=== PATIENT | male | born 1955 | race African-American/Black ===

== ENCOUNTER 2017-11-07 13:44 | Emergency (ER) | payer OTHER ==
[~2017-11-07] VITALS: Ht 157.5 cm; Wt 78.0 kg
[2017-11-07 13:48] VITALS: TEMP 36.6; Ht 157.5 cm; Wt 78.0 kg
[2017-11-07] MEDS ORDERED: CARI350T28 PO (14:13)
[2017-11-07 14:53] VITALS: BP 156/96; PULSE 58; O2SAT 96
--- NOTE | 2017-11-07 15:44 | EMERGENCY ROOM VISIT NOTE ---
History First contact with patient: 13:54 Chief Complaint: BACK PAIN Stated Complaint: BACK PAIN History of Present Illness The patient is a 62 year old -[place] male who presents to the Emergency Room with complaints of right shoulder pain and right low back pain. Patient states he was working on his car and slipped on some ice yesterday. He landed on his right side, striking his right shoulder on the ground. He has had pain since. No prior history of significant shoulder injury. He does have a history of chronic low back pain. He points to the lumbar area as the location of pain. He denies any loss of motion of his right shoulder. No numbness or tingling. He denies any snaps or cracks. He has been taking some Flexeril without improvement. His accompanies him today. Review of Systems REVIEW OF SYSTEM: HEENT: No dizziness, visual problems, hearing loss, or tinnitus. There is no difficulty swallowing and no oral lesions are present. PULMONARY: No cough, shortness of breath, sputum production or hemoptysis. CARDIOVASCULAR: No chest pain, palpitations, shortness of breath or peripheral edema. GASTROINTESTINAL: No diarrhea, constipation, nausea, vomiting, or abdominal pain. GENITOURINARY: No dysuria, frequency, urgency or nocturia. NEUROLOGIC: No weakness, muscle tenderness, epilepsy or history of neurological problems. MUSCULOSKELETAL: No history of joint tenderness/swelling. No history of arthritis or arthralgias. SKIN: No rashes or lesions. PSYCHIATRIC: No history of depression or mental illness. ENDOCRINE: No history of diabetes, thyroid disorders, or abnormal hair growth. Past Medical/Surgical History Past medical history: Significant for low back pain Previous surgeries: None Family History Significant for heart disease, hypertension, cancer, and kidney disease. Father is . Social History Smoking Status: Current Every Day Smoker Smokeless Tobacco Use: No Alcohol Use: none Drug Use: none Marital Status: Housing Status: lives with family Occupation Status: unemployed Current/Historical Medications Scheduled PRN Carisoprodol (Soma), 350 MG PO Q6H PRN for Pain Physical Exam Vital Signs Date Time Temp Pulse Resp B/P (MAP) Pulse Ox O2 Delivery O2 Flow Rate FiO2 11/07/17 14:53 58 18 156/96 96 11/07/17 13:48 36.6 66 16 176/90 92 Physical Exam General: Well-developed, well-nourished, middle-aged -[place] male, in no acute distress. Sitting on the bed. Alert and oriented. Skin: Warm and dry with good turgor. No rashes or lesions. No ecchymosis or erythema. The patient is not diaphoretic. No abrasions. Musculoskeletal: Low back evaluation reveals no obvious asymmetry or deformity. No palpable spasm. He describes discomfort with palpation over the right paraspinal musculature from L1-L5. No pain with palpation over the vertebral bodies or disc spaces. No pain with palpation over his sacrum or SI joints. Intact motor function to the lower extremities. Right shoulder evaluation reveals a slight prominence to the AC joint. It is tender to touch. No pain with palpation over the rest of the clavicle. He describes discomfort with palpation over the trapezius muscle. No trigger points. No pain with palpation over the posterior rotator cuff musculature. Intact function to the wrist and elbow. He has good motion of the shoulder though this does cause pain at his AC joint. Forward flexion of around 140, abduction of around 140. Good internal and external rotation. No pain with palpation over the deltoid or proximal biceps tendon. No Kulwinder sign or palpable defect. Good range of motion of his neck. Neurologic: Gross sensation is intact across the upper and lower extremities by soft touch. Medical Decision & Procedures ED Course Patient was educated regarding today's findings. Conservative care measures were discussed. Ice to the shoulder intermittently 3 days. Continue with pendulum exercises and gentle range of motion to prevent stiffness. He was shown how to do these. Follow-up with his PCP if symptoms persist. He will stop the Flexeril and start Soma 1 pill every 6 hours as needed for pain and spasm. Continue with his Tylenol and Motrin. Ice to the low back may also be of benefit for a few days, and then switch to moist heat. Gentle stretching was also recommended. Return to the ED for any acute worsening of symptoms. If his shoulder pain persists, he will require imaging. This was discussed. Sling was provided for comfort. Medical Decision Possibility of rotator cuff injury, biceps tendon rupture, fracture, lumbar disc injury, SI joint dysfunction, and strain were also considered. Medication Reconcilliation Current Medication List: was personally reviewed by me Blood Pressure Screening Blood pressure disposition: Elevated BP felt to be situational Impression Primary Impression: Lumbar strain Additional Impression: Separation of AC joint Departure Information Dispostion Home / Self-Care Condition FAIR Prescriptions Carisoprodol (Soma) 350 Mg Tab 350 MG PO Q6H Y for Pain, #16 TAB Prov: Benjie Hoang,P.A. 11/07/17 Forms HOME CARE DOCUMENTATION FORM, MOTRIN USE, TYLENOL USE, IMPORTANT VISIT INFORMATION Patient Instructions [facility] [employer] Additional Instructions Use the sling as needed for comfort Gentle arm and back motion daily Tylenol and Motrin every 6 hours as needed for discomfort Soma 1 tablet every 6 hours as needed for pain/spasm-no driving Follow up with your PCP as needed Return to the ED for any acute worsening of symptoms Problem Qualifiers Primary Impression: Lumbar strain Encounter type: initial encounter Qualified Codes: S39.012A - Strain of muscle, fascia and tendon of lower back, initial encounter Additional Impression: Separation of AC joint Encounter type: initial encounter Laterality: right Qualified Codes: S43.101A - Unspecified dislocation of right acromioclavicular joint, initial encounter
== END 2017-11-07 14:45 | disposition home or self-care (01) ==
LOC: C.EDB 13:45 → C.EDD 14:45
DX: S39.012A Strain of muscle, fascia and tendon of lower back, initial encounter (principal); S43.101A Unspecified dislocation of right acromioclavicular joint, initial encounter; Z82.49 Family history of ischemic heart disease and other diseases of the circulatory system; Z83.3 Family history of diabetes mellitus; Z84.1 Family history of disorders of kidney and ureter; W00.0XXA Fall on same level due to ice and snow, initial encounter; F17.200 Nicotine dependence, unspecified, uncomplicated

== ENCOUNTER 2017-11-24 10:33 | Emergency (ER) | payer OTHER ==
[~2017-11-24 10:33] MED LIST: CARI350T28 PO
[2017-11-24 10:49] VITALS: TEMP 36.7; Ht 157.5 cm
--- NOTE | 2017-11-24 12:29 | DIAGNOSTIC IMAGING REPORT ---
THORACIC SPINE 3 VIEWS ROUTINE CLINICAL HISTORY: 62 years-old Male presenting with Persistent back pain x 2.5 wks after fall. TECHNIQUE: 3 views of the thoracic spine were obtained. COMPARISON: None. FINDINGS: Minimal dextrocurvature of the thoracic spine suggested. Normal thoracic kyphosis. Vertebral bodies maintain normal height and alignment. Visualized portion of the cervical spine within normal limits. Intervertebral disc heights preserved. Anterior osteophytosis with disc osteophyte complexes noted in the lower thoracic spine. Hyperdensity within one of the upper lumbar vertebra may represent a bone island (marked on the image). No compression deformity. IMPRESSION: 1. No radiographic evidence of acute osseous injury. 2. Multilevel degenerative changes. 3. Possible bone island in an upper lumbar vertebra. Electronically signed by: Martin Caruso M.D. 11/24/2017 12:27 PM Dictated Date/Time: 11/24/2017 12:25 PM
--- NOTE | 2017-11-24 12:30 | DIAGNOSTIC IMAGING REPORT ---
L-SPINE MIN 4 VIEWS ROUTINE CLINICAL HISTORY: 62 years-old Male presenting with Persistent back pain x 2.5 wks after fall. TECHNIQUE: Frontal, bilateral oblique, lateral, and coned in lateral views of the lumbar spine were obtained. COMPARISON: None. FINDINGS: Normal lumbar lordosis. No significant scoliosis. Vertebral bodies maintain normal height and alignment. A sclerotic lesion is noted in L2, possibly bone island. Intervertebral disc heights preserved. No radiographic evidence of a compression deformity or osseous neural foraminal narrowing. Degenerative changes noted in the lower thoracic spine. The lumbar spine is essentially free of significant osseous degenerative change. IMPRESSION: 1. No radiographic evidence of acute osseous injury. 2. No advanced degenerative changes in the lumbar spine. 3. Sclerotic lesion in L2, possibly bone island. Electronically signed by: Martin Caruso M.D. 11/24/2017 12:28 PM Dictated Date/Time: 11/24/2017 12:27 PM
[2017-11-24] MEDS ORDERED: TRAM-10 PO (12:55)
[2017-11-24 13:05] VITALS: BP 155/96; PULSE 57; O2SAT 97
--- NOTE | 2017-11-24 16:37 | EMERGENCY ROOM VISIT NOTE ---
History First contact with patient: 11:34 Chief Complaint: BACK PAIN Stated Complaint: UPPDER BACK PAIN History of Present Illness The patient is a 62 year old male who presents to the Emergency Room with complaints of persistent lower back pain radiating into the upper back. The patient reports that he was here 2 weeks ago for an injury after he slipped and fell on ice. The patient was provided a prescription for Soma, which the patient reports is not helping with his pain. He previously took Flexeril without relief. The patient reports a history of chronic back pain. The patient reports that he also his right shoulder, but reports that his shoulder pain is improving. He has been performing exercises as instructed on his last ED visit. The patient currently denies any pain radiating into the buttocks or down the legs. He denies any lower extremity weakness, bladder/ bowel incontinence or saddle anesthesias. He currently rates his discomfort an 8 out of 10. The patient reports that he called his PCPs office and was told that his PCP is out of town for the next month. They did not offer to schedule him with another provider. When he asked for a prescription for medicine, they referred him to the emergency department. Review of Systems 10 system review was performed and was negative except for pertinent positives and negatives as indicated in history of present illness Past Medical/Surgical History Medical Problems: (1) Carpal Tunnel Syndrome (2) Cervical Spondylosis (3) Chronic low back pain (4) Tobacco Use Disorder Family History Unremarkable Social History Smoking Status: Former Smoker Alcohol Use: none Drug Use: none Marital Status: Housing Status: lives with family Occupation Status: unemployed Current/Historical Medications Scheduled PRN Tramadol (Ultram), 1-2 TAB PO Q4H PRN for Pain Physical Exam Vital Signs Date Time Temp Pulse Resp B/P (MAP) Pulse Ox O2 Delivery O2 Flow Rate FiO2 11/24/17 13:05 57 16 155/96 97 11/24/17 10:49 36.7 56 20 177/78 95 Room Air Physical Exam CONSTITUTIONAL: Healthy and well nourished. Alert and oriented X 3 with positive affect. Patient is currently resting on his back in no obvious distress. HEENT: Normocephalic, atraumatic. Pupils equal, round and reactive. Ears and nares are clear. NECK: Full active range of motion without discomfort. RESPIRATORY: Clear to auscultation bilaterally with no wheezing, crackles, rhonchi or stridor. CARDIOVASCULAR: Regular rate and rhythm with no murmurs, rubs or gallops. GASTROINTESTINAL: Bowel sounds present in all quadrants. Soft and nontender to palpation. MUSCULOSKELETAL: Examination shows generalized tenderness to palpation throughout the entire thoracolumbar spine. The patient has no obvious step- offs or paraspinous spasms. Patient is able to lateral bending, forward flex, extend and rotate the back with only mild discomfort. Equal handgrip bilaterally. Ankle plantar/dorsiflexion strength is 5 out of 5 and symmetric bilaterally. Distal pulses are intact. INTEGUMENTARY: No rash or other significant dermatologic conditions noted. NEUROLOGIC: Cranial nerves II-XII grossly intact. No focal neurologic deficits noted. Upper and lower extremities are sensory intact with deep tendon reflexes 2+ and symmetric bilaterally. Medical Decision & Procedures ER Provider Diagnostic Interpretation: My interpretation of lumbar spine x-rays does not show any obvious fractures or lordotic reversal. Radiologist report is as follows: L-SPINE MIN 4 VIEWS ROUTINE CLINICAL HISTORY: 62 years-old Male presenting with Persistent back pain x 2.5 wks after fall. TECHNIQUE: Frontal, bilateral oblique, lateral, and coned in lateral views of the lumbar spine were obtained. COMPARISON: None. FINDINGS: Normal lumbar lordosis. No significant scoliosis. Vertebral bodies maintain normal height and alignment. A sclerotic lesion is noted in L2, possibly bone island. Intervertebral disc heights preserved. No radiographic evidence of a compression deformity or osseous neural foraminal narrowing. Degenerative changes noted in the lower thoracic spine. The lumbar spine is essentially free of significant osseous degenerative change. IMPRESSION: 1. No radiographic evidence of acute osseous injury. 2. No advanced degenerative changes in the lumbar spine. 3. Sclerotic lesion in L2, possibly bone island. My interpretation of thoracic spine x-rays show significant degenerative changes in the lower thoracic spine, otherwise no other acute fractures noted. Radiologist report is as follows: THORACIC SPINE 3 VIEWS ROUTINE CLINICAL HISTORY: 62 years-old Male presenting with Persistent back pain x 2.5 wks after fall. TECHNIQUE: 3 views of the thoracic spine were obtained. COMPARISON: None. FINDINGS: Minimal dextrocurvature of the thoracic spine suggested. Normal thoracic kyphosis. Vertebral bodies maintain normal height and alignment. Visualized portion of the cervical spine within normal limits. Intervertebral disc heights preserved. Anterior osteophytosis with disc osteophyte complexes noted in the lower thoracic spine. Hyperdensity within one of the upper lumbar vertebra may represent a bone island (marked on the image). No compression deformity. IMPRESSION: 1. No radiographic evidence of acute osseous injury. 2. Multilevel degenerative changes. 3. Possible bone island in an upper lumbar vertebra. ED Course Patient history and physical exam were performed. Nurse's notes were reviewed. Vital signs were reviewed, showing a blood pressure 177/78. X-rays of the thoracolumbar spine were normal, showing no evidence for acute fracture. The patient does have degenerative changes in the lower thoracic spine. The patient was advised of his x-ray findings. Because muscle relaxers are not helping, I recommended no further prescriptions for these agents. The patient was requesting Ultram which has helped in the past with his pain. Review of the [place] Prescription Drug Monitoring Program does not show any red flags. The patient was encouraged to intermittently apply heat to the back. Tylenol for baseline pain relief. The patient was provided a prescription for Ultram 50 mg, dispense #15 with no refills. The patient was instructed to follow-up with his family doctor for further management. The patient was happy with plan of care, voiced understanding of all discharge instructions, and rated his discomfort a 5 out of 10 at the conclusion of my exam. Medical Decision [place] Drug Monitoring Program Search Results: patient reviewed within database, no issues identified Medication Reconcilliation Current Medication List: was personally reviewed by me Blood Pressure Screening Patient's blood pressure: Normal blood pressure Impression Primary Impression: Back strain Additional Impression: History of fall Departure Information Prescriptions Tramadol (Ultram) 50 Mg Tab 1-2 TAB PO Q4H Y for Pain, #20 TAB For Initial Treatment Prov: Christiano Flores PA 11/24/17 Referrals No Doctor, Assigned (PCP) Patient Instructions [facility] Problem Qualifiers Primary Impression: Back strain Encounter type: initial encounter Qualified Codes: S39.012A - Strain of muscle, fascia and tendon of lower back, initial encounter
== END 2017-11-24 13:15 | disposition home or self-care (01) ==
LOC: C.EDB 10:34 → C.EDC 13:15
DX: S39.012A Strain of muscle, fascia and tendon of lower back, initial encounter (principal); W00.0XXA Fall on same level due to ice and snow, initial encounter; G89.29 Other chronic pain; Z87.891 Personal history of nicotine dependence

== ENCOUNTER 2018-01-06 13:10 | Emergency (ER) | payer OTHER ==
[~2018-01-06] VITALS: Ht 157.5 cm; Wt 77.7 kg
[~2018-01-06 13:10] MED LIST changes: -CARI350T28 PO; +TRAM-10 PO
[2018-01-06 13:15] VITALS: TEMP 37; Ht 157.5 cm; Wt 77.7 kg
--- NOTE | 2018-01-06 13:38 | EMERGENCY ROOM VISIT NOTE ---
History Report prepared by Hilda: Kodi Boo Under the Supervision of: Dr. Timmy Brady M.D. First contact with patient: 13:19 Chief Complaint: NEURO SYMPTOMS Stated Complaint: FACIAL NUMBNESS LT SIDE History of Present Illness The patient is a 62 year old white male with a past medical history of chronic low back pain, Cervical Spondylosis, and carpal tunnel syndrome who presents to the ED with a cc of constant left sided facial droop beginning two day ago. Pt woke up two days ago with left sided facial droop. He notes he has been drooling out of the left side of his mouth. Positive numbness and tingling to the left side of the face, left eye is tearful. Negative being evaluated by doctor, alcohol use, drug use, recent tick bites, cough, vision changes, congestion, chills, fevers. Pt notes he smokes 7 packs of cigarettes a year. Source of History: patient Onset: two days ago Position: other (left face) Quality: other (droop) Timing: constant Associated Symptoms: + numbness (to the left side of face), No fevers, No chills, No cough Note: Associated symptoms: drooling out of left side of mouth, tingling to the left side of mouth, left eye is tearful Denies: congestion, vision changes, tick bites Review of Systems See HPI for pertinent positives and negatives. A total of ten systems were reviewed and were otherwise negative. Past Medical & Surgical Medical Problems: (1) Carpal Tunnel Syndrome (2) Cervical Spondylosis (3) Chronic low back pain (4) Tobacco Use Disorder Family History Cancer Social History Smoking Status: Current Every Day Smoker Alcohol Use: none Drug Use: none Marital Status: Housing Status: lives with family Occupation Status: unemployed Current/Historical Medications Scheduled Artificial Tears Oph Oint (Lacri-Lube Sop Oph Oint), 1 DROP OPL HS Polyvinyl Alcohol-Povidone (Op (Freshkote), 1 DROPS OP QID Prednisone (Prednisone), 1 TAB PO DIRECTED Allergies Coded Allergies: Ibuprofen (Verified Allergy, Unknown, gi symptoms, 11/24/17) Physical Exam Vital Signs Date Time Temp Pulse Resp B/P (MAP) Pulse Ox O2 Delivery O2 Flow Rate FiO2 01/06/18 16:00 66 18 191/91 97 01/06/18 14:56 53 17 175/84 97 Room Air 01/06/18 14:13 52 01/06/18 13:15 37.0 62 20 161/103 97 Room Air Physical Exam GENERAL: Awake, alert, well-appearing, NAD HENT: Normocephalic, atraumatic. EYES: Normal conjunctiva. Sclera non-icteric. PERRL. No anisocoria. Arcus senilis. NECK: Supple. No nuchal rigidity. FROM. RESPIRATORY: CTAB, no rhonchi, wheezing, crackles CARDIAC: RRR, no MRG ABDOMEN: Soft, NTND, BS+ MSK: No chest wall TTP, no LE edema NEURO: CN 2-12 intact with exception to decreased sensation over the left side of face and left facial droop with the inability to raise the left eyebrow, 5/5 upper and lower extremity strength, no dysmetria, no drift, good finger to nose , no sensory deficits. Finger count grossly normal. SKIN: No rash or jaundice noted. Medical Decision & Procedures ER Provider Diagnostic Interpretation: Radiology results as stated below per my review and radiologist interpretation HEAD WITHOUT CONTRAST (CT) CLINICAL HISTORY: 62 years-old Male presenting with Facial droop. TECHNIQUE: Multidetector CT imaging of the head was performed without the use of intravenous contrast. IV contrast: None. A dose lowering technique was used consistent with the principles of ALARA (as low as reasonably achievable). COMPARISON: None. CT DOSE (mGy.cm): The estimated cumulative dose is 638.56 mGycm. 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 Ventricles and sulci normal in size. Brain parenchyma normal in appearance with preserved young-white differentiation. No mass effect or midline shift. No hemorrhage or acute territorial infarct. No extra-axial fluid collection. Paranasal sinuses and mastoid air cells clear. Calvarium intact. IMPRESSION: 1. No acute intracranial abnormality. Electronically signed by: Martin Caruso M.D. 01/06/2018 2:37 PM Dictated Date/Time: 01/06/2018 2:34 PM Laboratory Results 01/06/18 14:00 01/06/18 14:00 Test 01/06/18 14:00 Red Blood Count 5.81 M/uL (4.7-6.1) Mean Corpuscular Volume 88.6 fL (80-100) Mean Corpuscular Hemoglobin 31.8 pg (25-34) Mean Corpuscular Hemoglobin Concent 35.9 g/dl (32-36) RDW Standard Deviation 44.9 fL (36.4-46.3) RDW Coefficient of Variation 13.8 % (11.5-14.5) Mean Platelet Volume 10.9 fL (7.4-10.4) Erythrocyte Sedimentation Rate 9 mm/hr (0-14) Anion Gap 4.0 mmol/L (3-11) Est Creatinine Clear Calc Drug Dose 66.7 ml/min Estimated GFR () 88.4 Estimated GFR (Non- 76.2 BUN/Creatinine Ratio 8.9 (10-20) Calcium Level 9.3 mg/dl (8.5-10.1) Phosphorus Level 2.3 mg/dl (2.5-4.9) Magnesium Level 1.9 mg/dl (1.8-2.4) Lyme Disease IgG Antibody NEG (NEG) Lyme Disease IgM Antibody NEG (NEG) Laboratory results reviewed by me ECG Per My Interpretation Indication: other (neurological symptoms) Rate (beats per minute): 57 Rhythm: sinus bradycardia Findings: T-wave inversion (Lateral and inferior), left axis deviation, other ( normal interval) Comparison ECG Date: no prior available ED Course 1319: The patient was evaluated in room C02B by the resident under my supervision. A complete history and physical exam was performed. 1338: The patient was evaluated in room C02B by me. A complete history and physical exam was performed. Please refer to the resident's chart for disposition and reevaluations. Medical Decision Nursing notes reviewed. Ancillary studies and prior records reviewed. The patient is a 62 year old white male with a past medical history of chronic low back pain, Cervical Spondylosis, and carpal tunnel syndrome who presents to the ED with a cc of constant left sided facial droop beginning two day ago. Differential diagnosis: Etiologies such as metabolic, infection, hypo/hyperglycemia, electrolyte abnormalities, cardiac sources, intracerebral event, toxicologic, neurologic, as well as others were entertained. Patient was seen and evaluated the bedside after being seen and evaluated by the resident physician. Patient noted that he has some left-sided facial droop over the last 2-3 days. Patient denies any infectious symptoms. Patient does not take bites. Patient denies any other focal neuro deficits. Patient did complain of some mild left-sided facial numbness. On patient's exam the patient does not have any forehead sparing and does have diffuse unilateral deficits in left side of the face. 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 The patient did have blood work completed along with a CT of the brain EKG. EKG did show some T-wave inversions in the lateral and inferior leads. Patient denies any chest pain do not believe that this needs further evaluation but the patient was told to follow-up as an outpatient. Patient blood work did show an elevated H&H. Patient was told to continue hydrating well follow-up with his outpatient provider. The resident did discuss case with the on-call neurologist who did not recommend any antivirals which is prednisone. Also told to continue to use an eye covering her eye protection along with Lacri-Lube artificial tears for eye dryness. Patient was told to follow-up with his PCP. Patient was given strict follow-up, discharge, and return precautions. All questions were answered. Patient was deemed suitable for outpatient follow-up at this time. Patient agreed with the plan of care and was safely discharged home. Medication Reconcilliation Current Medication List: was personally reviewed by me Blood Pressure Screening Patient's blood pressure: Elevated blood pressure Blood pressure disposition: Referred to PCP Impression Primary Impression: Desir's palsy Scribe Attestation The scribe's documentation has been prepared under my direction and personally reviewed by me in its entirety. I confirm that the note above accurately reflects all work, treatment, procedures, and medical decision making performed by me. Departure Information Dispostion Home / Self-Care Prescriptions Artificial Tears Oph Oint (Lacri-Lube Sop Oph Oint) Oint 1 DROP OPL HS for 7 Days, #1 TUBE Prov: Wing Sanchez MD 01/06/18 Polyvinyl Alcohol-Povidone (Op (FRESHKOTE) 1 Kinsey Kinsey 1 DROPS OP QID, #15 ML 0 Refills Prov: Wing Sanchez MD 01/06/18 Prednisone (Prednisone) 20 Mg Tab 1 TAB PO DIRECTED for 6 Days, #11 TAB 3 tablets day1 2.5 tablets day2 2 tablets day3 1.5 tablets day4 1 tablet day5 0.5 tablet day6 Prov: Wing Sanchez MD 01/06/18 Referrals Yomi Roberts D.O. (PCP) Forms HOME CARE DOCUMENTATION FORM, IMPORTANT VISIT INFORMATION, WORK / SCHOOL INSTRUCTIONS Patient Instructions My [facility] Additional Instructions You have been diagnosed with something called [place] Palsy which affects the nerves of your face. The symptoms will last for 1-2 weeks. We will be sending steroids into the pharmacy which you will need to take for 6 days. Please take these as prescribed. You will need to wear an eye patch when you are outside. You can get this from the pharmacy. We will be sending eye drops to the pharmacy which you should be using until your symptoms resolve. We will also be sending an ointment called lacri-lube which you must use for your eye every night before you go to bed. Please use this until your symptoms resolve. Your red blood cells are elevated. Please drink plenty of water and repeat this blood work with your PCP in the next couple weeks. If you have any worsening eye pain, facial weakness, headache, arm/leg weakness then please come back to the emergency department
--- NOTE | 2018-01-06 14:03 | EMERGENCY ROOM VISIT NOTE ---
History First contact with patient: 13:19 (Wing Sanchez MD) First contact with patient: 13:19 (Timmy Brady M.D.) Chief Complaint: NEURO SYMPTOMS Stated Complaint: FACIAL NUMBNESS LT SIDE History of Present Illness The patient is a 62 year old male who presents to the Emergency Room with complaints of left sided facial weakness Patient woke up on Thursday with droop of the left side of his face. He has had these symptoms since Thursday and they have stayed the same. He has also had hypersensitivity on the left side of his face. His has been drooling out the left side of his mouth and his eye has been watering since Thursday. He denies any arm weakness, leg weakness, headache, palpitations, chest pain, visual changes, ear pain, difficulty hearing, difficulty swallowing, abnormal gait, dizziness, unsteadiness, no fevers, chills or rashes He does not see a doctor regularly and he has no known medical problems. He has a 7 pack year smoking history. (Wing Sanchez MD) Review of Systems CONSTITUTIONAL: No fever, chills, sweats or night sweats. No recent infections. No weight loss or weight gain. NEUROLOGIC: No headaches, dizziness or syncopal episodes. HEENT: No hearing or visual changes. No sinus or nasal issues. No mouth sores, thrush or oral lesions. CARDIOVASCULAR: No chest pain or palpitations. RESPIRATORY: No SOB, dyspnea, cough or hemoptysis. GASTROINTESTINAL: No nausea, vomiting, diarrhea, constipation, reflux, melena or hematochezia. GENITOURINARY: No dysuria, frequency, urgency, incontinence or hematuria. HEMATOLOGIC: No bleeding or abnormal bruising (Wing Sanchez MD) Past Medical/Surgical History Medical Problems: (1) Carpal Tunnel Syndrome (2) Cervical Spondylosis (3) Chronic low back pain (4) Tobacco Use Disorder (Timmy Brady M.D.) Family History Cancer (Wing Sanchez MD) Cancer (Timmy Brady M.D.) Social History Smoking Status: Current Every Day Smoker Alcohol Use: none Drug Use: none Marital Status: Housing Status: lives with family Occupation Status: unemployed (Wing Sanchez MD) Current/Historical Medications Scheduled Artificial Tears Oph Oint (Lacri-Lube Sop Oph Oint), 1 DROP OPL HS Polyvinyl Alcohol-Povidone (Op (Freshkote), 1 DROPS OP QID Prednisone (Prednisone), 1 TAB PO DIRECTED Physical Exam Vital Signs Date Time Temp Pulse Resp B/P (MAP) Pulse Ox O2 Delivery O2 Flow Rate FiO2 01/06/18 16:00 66 18 191/91 97 01/06/18 14:56 53 17 175/84 97 Room Air 01/06/18 14:13 52 01/06/18 13:15 37.0 62 20 161/103 97 Room Air (Timmy Brady M.D.) Physical Exam HEENT: Head - normocephalic and atraumatic. Corneal arcus bilaterally. Pupils are equal, round, and reactive to light. Eyes Extraocular eye muscles are intact and sclera are anicteric. left eye with watery discharge Ears - bilaterally patent canals with noninjected tympanic membranes and no evidence of hemotympanum. Nose - moist nasal mucosa without discharge. Mouth -poor dentition Oropharynx is nonerythematous and there is no tonsillar exudate or edema noted. Neck: Supple; no JVD, nuchal rigidity, cervical lymphadenopathy, or auscultated bruits. Heart: Regular rate and rhythm. There is a normal S1 and S2 with no murmurs, clicks, or gallops appreciated. Lungs: Clear to auscultation bilaterally with no wheezes, rales, or rhonchi. Abdomen: Soft, completely nontender, nondistended, with good bowel sounds. There are no palpable pulsatile masses or hepatosplenomegaly. There is no guarding, rigidity, or rebound noted. Extremities: No evidence of cyanosis, clubbing, or edema. There are easily palpable peripheral pulses. Neuro:The patient is awake and alert, oriented to day, time, and place. Muscle strength is 5/5 in all 4 extremities. Sensation intact in all 4 extremities. Patella reflexes intact. The patient has equal imaging system administrator strength and equal pedal push and pull. There are no cerebellar signs. CN: left sided facial droop including the forehead, weakness of forehead, unable to close eye against resistance, lip droop on left side, increased sensation of V2 and V3 of face, EOMI, able to shrug trapezius against resistance , no uvula deviation (Wing Sanchez MD) Eyes: arcus senilus b/l (Timmy Brady M.D.) Medical Decision & Procedures ER Provider Diagnostic Interpretation: CT head w/out contrast: IMPRESSION: 1. No acute intracranial abnormality. (Wing Sanchez MD) Laboratory Results 01/06/18 14:00 01/06/18 14:00 Test 01/06/18 14:00 Red Blood Count 5.81 M/uL (4.7-6.1) Mean Corpuscular Volume 88.6 fL (80-100) Mean Corpuscular Hemoglobin 31.8 pg (25-34) Mean Corpuscular Hemoglobin Concent 35.9 g/dl (32-36) RDW Standard Deviation 44.9 fL (36.4-46.3) RDW Coefficient of Variation 13.8 % (11.5-14.5) Mean Platelet Volume 10.9 fL (7.4-10.4) Erythrocyte Sedimentation Rate 9 mm/hr (0-14) Anion Gap 4.0 mmol/L (3-11) Est Creatinine Clear Calc Drug Dose 66.7 ml/min Estimated GFR () 88.4 Estimated GFR (Non- 76.2 BUN/Creatinine Ratio 8.9 (10-20) Calcium Level 9.3 mg/dl (8.5-10.1) Phosphorus Level 2.3 mg/dl (2.5-4.9) Magnesium Level 1.9 mg/dl (1.8-2.4) Lyme Disease IgG Antibody NEG (NEG) Lyme Disease IgM Antibody NEG (NEG) (Timmy Brady M.D.) ECG Per My Interpretation Rhythm: sinus bradycardia Change: Sinus bradycardia at 57 with normal rhythm T wave inversion in V5, V6, lead 3 and AVF Left ventricular hypertrophy (Wing Sanchez MD) ED Course 1330: patient was seen and examined by myself 1340: I discussed the case with Dr. Brady and order labs and imaging for the patient 1345: I spoke to Dr. Moser who was in agreement with the working diagnosis of [place] Palsy, he suggested treatment option if labs and tests return as normal 1500: Labs results showed a Hgb of 18.5 but other labs were unremarkable. CT scan of head returned as negative 1515: Results were given to patient. Plan for outpatient steroids and eye ointments were discussed with patient. He is to follow up with PCP and was in agreement with the plan 1530: Plan was discussed with Dr. Brady who was in agreement with discharge (Wing Sanchez MD) Medical Decision Patient is a 62 year old male that presented with acute onset left sided facial droop of 3 days duration. The facial droop included the forehead and he was hypersensitive on the left side of his face. His CT head was negative, CBC was significant for hgb of 18.5, bmp, esr and lyme testing were unremarkable. He had an EKG which showed T wave inversion and left axis deviation otherwise without any finding. I spoke to Dr. Moser who was in agreement with the diagnosis of [place] Palsy. Patient was discharged with 6 day steroid taper with eye ointment and eye care instructions. He is to follow up with his PCP in the next 3-4 days. Patient was in agreement with the plan. (Wing Sanchez MD) Medication Reconcilliation Current Medication List: was personally reviewed by me (Wing Sanchez MD) Blood Pressure Screening Patient's blood pressure: Elevated blood pressure Blood pressure disposition: Elevated BP felt to be situational, Referred to PCP , Did not require urgent referral (Wing Sanchez MD) Impression Primary Impression: Desir's palsy Additional Impression: Encounter for smoking cessation counseling Departure Information Prescriptions Artificial Tears Oph Oint (Lacri-Lube Sop Oph Oint) Oint 1 DROP OPL HS for 7 Days, #1 TUBE Prov: Wing Sanchez MD 01/06/18 Polyvinyl Alcohol-Povidone (Op (FRESHKOTE) 1 Kinsey Kinsey 1 DROPS OP QID, #15 ML 0 Refills Prov: iWng Sanchez MD 01/06/18 Prednisone (Prednisone) 20 Mg Tab 1 TAB PO DIRECTED for 6 Days, #11 TAB 3 tablets day1 2.5 tablets day2 2 tablets day3 1.5 tablets day4 1 tablet day5 0.5 tablet day6 Prov: Wing Sanchez MD 01/06/18 Referrals Yomi Roberts, D.O. (PCP) Patient Instructions My [facility] Problem Qualifiers
[2018-01-06 14:11] LABS: HEMATOCRIT 51.5 % (42-52); HEMOGLOBIN 18.5 g/dL (14.0-18.0); MEAN CELL VOLUME 88.6 fL (80-100); MEAN CORPUSCULAR HEMOGLOBIN 31.8 pg (25-34); MEAN CORPUSCULAR HGB CONC 35.9 g/dl (32-36); MEAN PLATELET VOLUME 10.9 fL (7.4-10.4); PLATELET COUNT 160 K/uL (130-400); RED CELL DISTRIBUTION WIDTH CV 13.8 % (11.5-14.5); RED CELL DISTRIBUTION WIDTH SD 44.9 fL (36.4-46.3); WHITE BLOOD COUNT 7.36 K/uL (4.8-10.8)
[2018-01-06 14:27] LABS: CALCIUM 9.3 mg/dl (8.5-10.1); CREATININE 1.05 mg/dl (0.60-1.40); PHOSPHORUS 2.3 mg/dl (2.5-4.9)
--- NOTE | 2018-01-06 14:39 | DIAGNOSTIC IMAGING REPORT ---
HEAD WITHOUT CONTRAST (CT) CLINICAL HISTORY: 62 years-old Male presenting with Facial droop. TECHNIQUE: Multidetector CT imaging of the head was performed without the use of intravenous contrast. IV contrast: None. A dose lowering technique was used consistent with the principles of ALARA (as low as reasonably achievable). COMPARISON: None. CT DOSE (mGy.cm): The estimated cumulative dose is 638.56 mGycm. 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 Ventricles and sulci normal in size. Brain parenchyma normal in appearance with preserved young-white differentiation. No mass effect or midline shift. No hemorrhage or acute territorial infarct. No extra-axial fluid collection. Paranasal sinuses and mastoid air cells clear. Calvarium intact. IMPRESSION: 1. No acute intracranial abnormality. Electronically signed by: Martin Caruso M.D. 01/06/2018 2:37 PM Dictated Date/Time: 01/06/2018 2:34 PM
[2018-01-06] MEDS ORDERED: ARTIOIN OPL (15:32)
[2018-01-06] MEDS ORDERED: ARTIOIN OP (15:32)
[2018-01-06] MEDS ORDERED: PRED20TA PO (15:32)
[2018-01-06] MEDS ORDERED: POLYDRO OP (15:32)
[2018-01-06 16:00] VITALS: BP 191/91; PULSE 66; O2SAT 97
== END 2018-01-06 16:00 | disposition home or self-care (01) ==
LOC: C.EDB 13:11 → C.EDC 16:00
DX: G51.0 Bell's palsy (principal); R03.0 Elevated blood-pressure reading, without diagnosis of hypertension; F17.200 Nicotine dependence, unspecified, uncomplicated; Z88.6 Allergy status to analgesic agent